=== PATIENT | male | born 1975 | race American Indian/Alaskan Native ===

== ENCOUNTER 2018-10-10 08:11 | Emergency (ER) | payer OTHER ==
[~2018-10-10] VITALS: Ht 182.9 cm; Wt 93.0 kg
[~2018-10-10 08:11] MED LIST: BETA.05TCA TOP; CEPH500 PO; CYCL10 PO; DESO.25TC TOP; GENT.3OPSA OS; HYDACE5 PO; IBUP800 PO; Keflex500 MG PO; PREDNISONE TAPER; Prednisone10 MG PO; SOME ANTIBIODIC; Ultram50 MG PO
[2018-10-10] MEDS ORDERED: OTEZLA30 MG PO (08:25)
[2018-10-10] MEDS ORDERED: NAPR550 PO (09:36)
[2018-10-10] MEDS ORDERED: Ultram50 MG PO (09:56)
== END 2018-10-10 10:10 | disposition home or self-care (01) ==
LOC: ER 08:11
DX: L40.50 Arthropathic psoriasis, unspecified (principal); M25.571 Pain in right ankle and joints of right foot; M25.572 Pain in left ankle and joints of left foot; Z79.899 Other long term (current) drug therapy; I10 Essential (primary) hypertension; Z87.891 Personal history of nicotine dependence
CPT/HCPCS: 73610; 73630; 96372; 99283-25; J1885

== ENCOUNTER 2021-08-04 00:56 | Day surgery (SDC) | payer MEDICARE, OTHER ==
[~2021-08-04] VITALS: Wt 113.2 kg
[~2021-08-04 00:56] MED LIST changes: +Betamethasone V15 G1 TOP; +HYDROCODONE-AC1 EA10 PO; +IBU800 M1 PO; +NAPR550 PO; +OTEZLA30 MG PO
== END 2021-08-04 16:05 | disposition home or self-care (01) ==
LOC: ATC 00:56
DX: L40.50 Arthropathic psoriasis, unspecified (principal); Z87.891 Personal history of nicotine dependence; L40.0 Psoriasis vulgaris
CPT/HCPCS: A9270; J1200; J2920; J7050; Q5103

== ENCOUNTER 2021-09-08 04:44 | Day surgery (SDC) | payer MEDICARE, OTHER ==
--- NOTE | 2021-09-02 15:27 | NUR ---
PT DID NOT SHOW FOR HIS APPOINTMENT IN THE [facility] TODAY.
[~2021-09-08] VITALS: Wt 115.8 kg
[2021-09-08] MEDS ORDERED: INFLECTRA100 MG IV (13:48)
[2021-09-08] MEDS ORDERED: LOSARTAN POTASS25 M2 PO (14:04)
== END 2021-09-08 16:00 | disposition home or self-care (01) ==
LOC: ATC 04:44
DX: L40.50 Arthropathic psoriasis, unspecified (principal)
CPT/HCPCS: 96375; 96413; 96415; A9270; J1200; J2920; J7050; Q5103

== ENCOUNTER 2021-12-23 02:25 | Day surgery (SDC) | payer MEDICARE, OTHER ==
[~2021-12-23] VITALS: Wt 115.2 kg
[~2021-12-23 02:25] MED LIST changes: +INFLECTRA100 MG IV; +LOSARTAN POTASS25 M2 PO
[2021-12-23] MEDS ORDERED: MAVYRET 100-401 EAC1 PO (14:06)
== END 2021-12-23 16:07 | disposition home or self-care (01) ==
LOC: ATC 02:25
DX: L40.59 Other psoriatic arthropathy (principal); L40.0 Psoriasis vulgaris
CPT/HCPCS: 96374; 96375; 96413; 96415; A9270; J1200; J2920; J7050; Q5103

== ENCOUNTER 2024-04-06 12:03 | Day surgery (SDC) | payer MEDICARE ==
[~2024-04-06] VITALS: Ht 177.8 cm; Wt 121.2 kg
[~2024-04-06 12:03] MED LIST changes: +Lactated Ringer's 1,000 ML IV ONE; +MAVYRET 100-401 EAC1 PO; +SIMPONI AR50 MG/4 M1 IV; +propofoL 50 ML IV ONE
[2024-04-06] MEDS ORDERED: METTREX2.5 (12:26)
[2024-04-06] MEDS ORDERED: Lactated Ringer's 1,000 ML IV ONE (13:00)
[2024-04-06 14:22] VITALS: BP 117/78
== END 2024-04-06 14:19 | disposition home or self-care (01) ==
LOC: ORSCSDS 12:03
PROVIDERS: Internal Medicine Gastroenterology
PROC: 0DB78ZX Excision of Stomach, Pylorus, Via Natural or Artificial Opening Endoscopic, Diagnostic (ICD-10-PCS; principal; 2024-04-06 13:30)
DX: K74.60 Unspecified cirrhosis of liver (principal); K29.50 Unspecified chronic gastritis without bleeding; B96.81 Helicobacter pylori [H. pylori] as the cause of diseases classified elsewhere; Z13.810 Encounter for screening for upper gastrointestinal disorder; B19.20 Unspecified viral hepatitis C without hepatic coma; L40.50 Arthropathic psoriasis, unspecified; I10 Essential (primary) hypertension; Z87.891 Personal history of nicotine dependence; E66.9 Obesity, unspecified; Z68.38 Body mass index [BMI] 38.0-38.9, adult; Z79.899 Other long term (current) drug therapy
CPT/HCPCS: 88305; 88342; J2704; J7120